=== PATIENT | male | born 1960 | race Two or more races ===

== ENCOUNTER 2016-08-29 23:25 | Emergency (ER) | payer SELFPAY ==
[~2016-08-29] VITALS: Ht 172.7 cm; Wt 93.0 kg
--- NOTE | 2016-08-30 00:45 | NUR ---
Pt BIB SELF. IN ER BED 8. Pt STATED THAT HE THINKS HE GOT A BUG BITE IN GENITAL AREA. GENITAL ABSCESS X4DAYS. Pt IS A/OX4. RR EVEN & UNLABORED.
--- NOTE | 2016-08-30 01:00 | NUR ---
IV STARTED ON L HAND #20G
[2016-08-30] MEDS ORDERED: ONDANSETRON HCL/PF 4 MG/2 ML VIAL IVP ONE (01:30)
[2016-08-30] MEDS ORDERED: HYDROMORPHONE INJ 2 MG/ML DISP.SYRIN IV ONE (01:30)
[2016-08-30] MEDS ORDERED: LIDOCAINE HCL/PF 1% 30 ML VIAL TP ONE (01:30)
[2016-08-30] MEDS ORDERED: TDAP [DIPH/PERTUSSIS/TET] 0.5 ML VIAL IM ONE ×2 (01:30→02:46)
[2016-08-30 01:38] LABS: BASOPHILS # (AUTO) 0.1 /CMM (0.0-0.2); BASOPHILS % (AUTO) 0.3 % (0.0-2.0); EOSINOPHILS # (AUTO) 0.3 /CMM (0.0-0.7); EOSINOPHILS % (AUTO) 1.9 % (0.0-6.0); HEMATOCRIT 47 % (39-51); HEMOGLOBIN 16.3 g/dL (13.5-17.5); LYMPHOCYTES # (AUTO) 2.9 /CMM (0.8-4.8); LYMPHOCYTES % (AUTO) 17.3 % (20.0-44.0); MEAN CORPUSCULAR HEMOGLOBIN 31 PG (26.0-33.0); MEAN CORPUSCULAR HGB CONC 35 g/dl (31.0-36.0); MEAN CORPUSCULAR VOLUME 89 fL (80-96); MONOCYTES # (AUTO) 0.9 /CMM (0.1-1.30); MONOCYTES % (AUTO) 5.1 % (2.0-12.0); NEUTROPHILS # (AUTO) 12.6 /CMM (1.8-8.9); NEUTROPHILS % (AUTO) 75.4 % (43.0-81.0); PLATELET COUNT (AUTO) 297 /CMM (150-450); RDW COEFFICIENT OF VARIATION 12.8 (11.5-15.0); RED BLOOD CELL COUNT(AUTO) 5.24 MIL/uL (4.5-6.0); WHITE BLOOD COUNT (AUTO) 16.7 K/uL (4.3-11.0)
[2016-08-30 01:54] LABS: POTASSIUM 3.9 mmol/L (3.5-5.1)
[2016-08-30] MEDS ORDERED: ALBUTEROL FS 2.5 MG/3 ML VIAL.NEB CONTNEB ONE (02:00)
[2016-08-30] MEDS ORDERED: IPRATROPIUM NEB FS 0.5 MG/2.5 ML AMPUL.NEB NEB ONE (02:00)
[2016-08-30] MEDS ORDERED: DEXAMETHASONE SOD PHOSPHATE 10 MG/ML VIAL IV ONE (02:00)
[2016-08-30] MEDS ORDERED: DOXYCYCLINE HYCLATE (100 MG) 100 MG TABLET PO ONE (02:00)
--- NOTE | 2016-08-30 02:35 | NUR ---
TDAP SHOT GIVEN IM ON RT UPPER ARM. BOTTLE LOT: [id number]; BOTTLE EXP: 02/01/18
[2016-08-30] MEDS ORDERED: HYDROMORPHONE 1 MG/1 ML DISP.SYRIN ONE (02:44)
[2016-08-30] MEDS ORDERED: ONDANSETRON HCL/PF 4 MG/2 ML VIAL ONE (02:45)
--- NOTE | 2016-08-30 02:50 | NUR ---
I & D IN PROGRESS AT THE BEDSIDE.
[2016-08-30] MEDS ORDERED: SULFAMETH/TRIMETH 800/160 MG 1 UDTAB TABLET PO ONE ×2 (03:00→03:58)
[2016-08-30] MEDS ORDERED: CEPHALEXIN MONOHYDRATE 500 MG CAPSULE PO ONE ×2 (03:00→03:58)
--- NOTE | 2016-08-30 03:58 | NUR ---
IV removed. Catheter intact and site benign. Pressure and 4x4 applied to site. No bleeding noted.
--- NOTE | 2016-08-30 04:03 | NUR ---
Patient discharged to home in stable condition. Written and verbal after care instructions given. Patient verbalizes understanding of instruction AND RX. PT IS CALLING SOMEONE TO PICK HIM UP. PT'S VSS. PT IS WAITING IN ER BED #8 UNITL HIS FRIEND ARRIVES.
--- NOTE | 2016-08-30 04:08 | NUR ---
PT WAS INSTRUCTED NOT TO DRIVE. PT TO HAVE SOMEONE PICK HIM UP.
[2016-08-30 04:11] VITALS: BP 143/88
== END 2016-08-30 04:11 | disposition home or self-care (01) ==
LOC: ER 23:25
DX: L02.416 Cutaneous abscess of left lower limb (principal); I10 Essential (primary) hypertension; Z90.49 Acquired absence of other specified parts of digestive tract; F17.200 Nicotine dependence, unspecified, uncomplicated
CPT/HCPCS: 36415; 80048-TC; 85025-TC; 90715; A4606; A6253; A6402; A6403; J1170; J2405; J3490; Z7610

== ENCOUNTER 2016-09-21 19:10 | Inpatient (IN) | payer OTHER ==
[~2016-09-21] VITALS: Ht 172.7 cm; Wt 123.6 kg
--- NOTE | 2016-09-21 19:16 | NUR ---
SOB W/ BLE & BILATERAL HAND NUMBNESS X YESTERDAY. DENIES ANY CP. PLACED ON MONITOR. GOWNED PT. AWAITING MD ORDER
--- NOTE | 2016-09-21 19:44 | NUR ---
WERO #18 IV ACCESS. BLOOD SAMPLE COLLECTED SENT TO LAB
[2016-09-21 19:46] LABS: BASOPHILS # (AUTO) 0.1 /CMM (0.0-0.2); BASOPHILS % (AUTO) 1.4 % (0.0-2.0); EOSINOPHILS # (AUTO) 0.2 /CMM (0.0-0.7); EOSINOPHILS % (AUTO) 1.8 % (0.0-6.0); HEMATOCRIT 48 % (39-51); HEMOGLOBIN 16.4 g/dL (13.5-17.5); LYMPHOCYTES # (AUTO) 2.7 /CMM (0.8-4.8); LYMPHOCYTES % (AUTO) 26.3 % (20.0-44.0); MEAN CORPUSCULAR HEMOGLOBIN 30 PG (26.0-33.0); MEAN CORPUSCULAR HGB CONC 34 g/dl (31.0-36.0); MEAN CORPUSCULAR VOLUME 89 fL (80-96); MONOCYTES # (AUTO) 0.5 /CMM (0.1-1.30); MONOCYTES % (AUTO) 5.1 % (2.0-12.0); NEUTROPHILS # (AUTO) 6.9 /CMM (1.8-8.9); NEUTROPHILS % (AUTO) 65.4 % (43.0-81.0); PLATELET COUNT (AUTO) 283 /CMM (150-450); RDW COEFFICIENT OF VARIATION 12.3 (11.5-15.0); RED BLOOD CELL COUNT(AUTO) 5.43 MIL/uL (4.5-6.0); WHITE BLOOD COUNT (AUTO) 10.4 K/uL (4.3-11.0)
--- NOTE | 2016-09-21 19:56 | NUR ---
XR AT BEDSIDE.
[2016-09-21 19:57] LABS: CALCIUM, SERUM 8.5 mg/dL (8.5-10.1); CARBON DIOXIDE 27 mmol/L (21-32); CHLORIDE 103 mmol/L (98-107); CREATININE 1.1 mg/dL (0.6-1.3); GLUCOSE 233 mg/dL (74-106); POTASSIUM 4.7 mmol/L (3.5-5.1); SODIUM SERUM 139 mmol/L (136-145); UREA NITROGEN, BLOOD 12 mg/dL (7-18)
[2016-09-21 19:59] LABS: INR 0.89 (0.87-1.13); PROTHROMBIN TIME 9.4 SECS (9.5-12.7)
[2016-09-21 20:06] LABS: TROPONIN I < 0.017 ng/mL (0.00-0.056)
[2016-09-21] MEDS ORDERED: CT SWABBABLE VALVE TRANS SET 1 EA INFUS.SET MC ONE (20:41)
--- NOTE | 2016-09-21 20:43 | NUR ---
PATIENT TO CT.
--- NOTE | 2016-09-21 22:06 | NUR ---
[facility] PAGED, NANDO NEWMAN MASTER ELECTRICIAN
--- NOTE | 2016-09-21 22:08 | NUR ---
CALLED NURSING SUP. FOR TELE BED
[2016-09-21 22:30] VITALS: BP 157/89
--- NOTE | 2016-09-21 22:30 | NUR ---
RN NOTES ADMITTED A 56 YEARS OLD MALE, EGYPTIAN PT FROM ER VIA [facility], ACCOMPANIED BY 2 ER NURSE WITH PRIMARY DIAGNOSIS OF AORTIC ANEURYSM UNDER NANDO NEWMAN NP. PT IS ALERT AND ORIENTED X4, DENIES CHEST PAIN, NAUSEA AND VOMITING. TELE MONITOR READS SINUS RHYTHM AT 82. PT CLAIMS NUMBNESS ON HIS BOTH LOWER AND UPPER EXTREMITY. BODY AND SKIN ASSESSMENT DONE, SKIN CLEAR AND INTACT. PT IS AMBULATORY WITH STEADY GAIT. KEPT COMFORTABLE AND ATTENDED. WILL CONTINUE TO MONITOR PT.
--- NOTE | 2016-09-21 22:33 | NUR ---
Report given to Aime FALCON and transfered patient to room 323-2 via als protocol, no incident noted.
[2016-09-21 22:45] VITALS: BP 157/89
--- NOTE | 2016-09-21 22:50 | NUR ---
RN NOTES SEEN AND EXAMINED BY NANDO NEWMAN NP, WITH VITAL SIGNS AND TELE MONITOR READING MADE AWARE. ADMITTING ORDERS GIVEN, NOTED AND CARRIED OUT.
[2016-09-21] MEDS ORDERED: ONDANSETRON HCL/PF 4 MG/2 ML VIAL IVP PRN (23:30)
[2016-09-21] MEDS ORDERED: hydrALAZINE HCL 10 MG TABLET PO ONE (23:30)
[2016-09-21] MEDS ORDERED: ACETAMINOPHEN 325 MG TABLET PO PRN (23:30)
[2016-09-21] MEDS ORDERED: HYDROCODONE/APAP 5/325MG 1 EACH TABLET PO PRN (23:30)
[2016-09-21] MEDS ORDERED: hydrALAZINE HCL 10 MG TABLET PO PRN (23:30)
[2016-09-21] MEDS ORDERED: Z GUARD REMEDY 2 OZ OINT TP PRN (23:30)
[2016-09-21] MEDS ORDERED: MAG HYDROX/AL HYDROX/SIMETH 30 ML UDC PO PRN (23:30)
[2016-09-21] MEDS ORDERED: MAGNESIUM HYDROXIDE 30 ML UDC PO PRN (23:30)
[2016-09-21] MEDS ORDERED: hydrALAZINE HCL 10 MG TABLET ONE (23:52)
[2016-09-22] VITALS (7 sets, daily range): BP systolic 125–145; BP diastolic 79–96
[2016-09-22 07:08] LABS: BASOPHILS # (AUTO) 0.1 /CMM (0.0-0.2); BASOPHILS % (AUTO) 0.5 % (0.0-2.0); EOSINOPHILS # (AUTO) 0.2 /CMM (0.0-0.7); EOSINOPHILS % (AUTO) 2.3 % (0.0-6.0); HEMATOCRIT 47 % (39-51); HEMOGLOBIN 15.9 g/dL (13.5-17.5); LYMPHOCYTES # (AUTO) 3.2 /CMM (0.8-4.8); LYMPHOCYTES % (AUTO) 32.1 % (20.0-44.0); MEAN CORPUSCULAR HEMOGLOBIN 30 PG (26.0-33.0); MEAN CORPUSCULAR HGB CONC 34 g/dl (31.0-36.0); MEAN CORPUSCULAR VOLUME 90 fL (80-96); MONOCYTES # (AUTO) 0.6 /CMM (0.1-1.30); MONOCYTES % (AUTO) 5.5 % (2.0-12.0); NEUTROPHILS % (AUTO) 59.6 % (43.0-81.0); PLATELET COUNT (AUTO) 252 /CMM (150-450); RDW COEFFICIENT OF VARIATION 13.3 (11.5-15.0); RED BLOOD CELL COUNT(AUTO) 5.22 MIL/uL (4.5-6.0); WHITE BLOOD COUNT (AUTO) 10.1 K/uL (4.3-11.0)
[2016-09-22 07:18] LABS: ALBUMIN 3.3 g/dL (3.4-5.0); BILIRUBIN,TOTAL 0.4 mg/dL (0.2-1.0); CALCIUM, SERUM 8.5 mg/dL (8.5-10.1); CREATININE 0.9 mg/dL (0.6-1.3); MAGNESIUM 1.8 mg/dL (1.8-2.4); PHOSPHORUS 4.6 mg/dL (2.5-4.9); POTASSIUM 4.2 mmol/L (3.5-5.1); TOTAL PROTEIN, SERUM 6.8 g/dL (6.4-8.2)
[2016-09-22 07:25] LABS: THYROID STIMULATING HORMONE 1.438 uIU/mL (0.358-3.74)
--- NOTE | 2016-09-22 07:30 | NUR ---
EMPLOYMENT OFFICER NOTES RECEIVED PATIENT IN BED RESTING. ALERT AND ORIENTED X3. RESPIRATIONS EVEN AND UNLABORED. NO SOB. TELEMETRY SR 79. COMPLAIN OF CHEST PAIN 4/, NON RADIATING, REFUSED PAIN MEDICATION, PATIENT SAID "ITS TOLERABLE, IM OK", NOTIFIED BOTTLED BEVERAGE INSPECTOR JOHN WATERMAN, NO NEW ORDERS. KEPT PATIENT COMFORTABLE. BED IN LOW POSITION, SIDERAILS UP X2. CALL LIGHT WITHIN REACH. WILL CONTINUE TO MONITOR ACCORDINGLY.
[2016-09-22] MEDS ORDERED: ASPI81TA2 PO (08:06)
[2016-09-22] MEDS ORDERED: ATEN50TA PO (08:06)
--- NOTE | 2016-09-22 08:08 | NUR ---
RN NOTES PT ASLEEP, BREATHING REGULAR AND UNLABORED, NO SIGNS OF PAIN OR DISCOMFORT NOTED. VITAL SIGNS STABLE, AFEBRILE. NO COMPLAIN PAIN AND DISCOMFORT. NO EPISODE OF NAUSEA AND VOMITING. SNACKS GIVEN AND TOLERATED WELL. AMBULATE GOING TO THE BATHROOM WITH STEADY GAIT. ALL NEEDS MET. ENDORSED TO MORNING RN FOR CONTINUITY OF CARE.
[2016-09-22] MEDS ORDERED: HYDROCHLOROTHIAZIDE 25 MG TABLET PO SCH (11:30)
[2016-09-22] MEDS: LOSARTAN POTASSIUM 25 MG TABLET PO SCH (13:31)
--- NOTE | 2016-09-22 19:15 | NUR ---
RN CLOSING NOTES PATIENT IN BED RESTING, IN STABLE CONDITION. NO ACUTE DISTRESS, NO SOB NOTED. DENIES PAIN AND DISCOMFORT. ALL NEEDS ATTENDED AND PROVIDED. ENDORSED TO STATISTICAL GENETICIST RN FOR CONTINUITY OF CARE.
[2016-09-22] MEDS ORDERED: ZOLPIDEM TARTRATE 5 MG TABLET PO ONE (20:30)
--- NOTE | 2016-09-22 20:30 | NUR ---
MS RN NOTES HGBA1C 7.4 PT ALSO REQUESTING FOR SLEEPING PILL. NOTIFIED [employer] HEALTH INFORMATICS SPECIALIST. HEALTH INFORMATICS SPECIALIST ORDERED AMBIEN FOR SLEEP. WILL F/U WITH MARIA G HAMM RE HGBAIC RESULT PER HEALTH INFORMATICS SPECIALIST. WILL CONTINUE TO MONITOR.
[2016-09-22] MEDS: CARVEDILOL 6.25 MG TABLET PO SCH (21:06)
[2016-09-22] MEDS ORDERED: ATORVASTATIN 40 MG TABLET PO SCH (22:00)
[2016-09-23 01:54] VITALS: BP 120/83
--- NOTE | 2016-09-23 06:17 | NUR ---
MS RN NOTES AWAKE & RESPONSIVE. NOT IN ANY DISTRESS. NO SOB NOTED. DENIES ANY PAIN OR DISCOMFORT AT THIS TIME. WITH IV-HL PATENT & INTACT. MONITORED ACCORDINGLY. CALL LIGHT WITHIN REACH. BED IN LOWEST POSITION. SR UP X2 FOR SAFETY. WILL ENDORSE TO NEXT SHIFT.
--- NOTE | 2016-09-23 07:46 | NUR ---
RN MS NOTES RECEIVED PATIENT IN BED, AWAKE, VERBALLY RESPONSIVE. NO APPARENT DISTRESS NOTED, DENIES PAIN, DENIES SOB. IV LINE ON LEFT HAND PATENT, ALL NEEDS MET, CALL LIGHT WITHIN REACH.
[2016-09-23 08:00] VITALS: BP 145/91
[2016-09-23] MEDS: LOSARTAN POTASSIUM 25 MG TABLET PO SCH (08:55)
[2016-09-23 08:56] VITALS: BP 145/91
[2016-09-23] MEDS: CARVEDILOL 6.25 MG TABLET PO SCH (08:56)
[2016-09-23] MEDS ORDERED: ASPIRIN EC 81 MG TABLET.DR PO SCH (09:00)
[2016-09-23] MEDS ORDERED: METFORMIN 500 MG TABLET PO SCH (10:00)
--- NOTE | 2016-09-23 13:33 | NUR ---
RN MS CLOSING NOTES PATIENT LEFT IN STABLE CONDITION, VIA PRIVATE CAR. NO APPARENT DISTRESS NOTED, DENIES PAIN, DENIES SOB. ALL DUE MEDS GIVEN, ALL NEEDS MET. IV LINE DISCONTINUED, PRESCRIPTION GIVEN TO PATIENT. EDUCATION PROVIDED FOR NEW MEDICATIONS, HE STATED UNDERSTANDING. DISCHARGE INSTITUTIONS REVIEWED WITH PATIENT, HE SATED UNDERSTANDING. ALL BELONGINGS ACCOUNTED FOR, FORM SIGNED. EXIT CARE UTILIZED TO PROVIDE EDUCATIONAL MATERIAL. PATIENT EDUCATED ON DIET MODIFICATION AND DM.
== END 2016-09-23 13:31 | disposition home or self-care (01) | DRG 48 ==
LOC: ER 19:12 → TELE 22:30 → MED 09-22 16:26
PROVIDERS: ADMIT Nurse Practitioner Acute Care; ATTEND Nurse Practitioner Acute Care
DX: E11.40 Type 2 diabetes mellitus with diabetic neuropathy, unspecified (principal); I11.0 Hypertensive heart disease with heart failure; I50.32 Chronic diastolic (congestive) heart failure; I71.2 Thoracic aortic aneurysm, without rupture; M94.0 Chondrocostal junction syndrome [Tietze]; E11.65 Type 2 diabetes mellitus with hyperglycemia; F17.210 Nicotine dependence, cigarettes, uncomplicated; E66.01 Morbid (severe) obesity due to excess calories; E78.5 Hyperlipidemia, unspecified; Z90.49 Acquired absence of other specified parts of digestive tract; E78.1 Pure hyperglyceridemia; Z68.41 Body mass index [BMI] 40.0-44.9, adult; Z71.6 Tobacco abuse counseling; Z71.3 Dietary counseling and surveillance; Z83.3 Family history of diabetes mellitus; E44.1 Mild protein-calorie malnutrition
CPT/HCPCS: 36415; 71010-TC; 80048-TC; 80053-TC; 80061-TC; 83735-TC; 83880; 84100-TC; 84443-TC; 84484-TC; 85025-TC; 85378-TC; 85730-TC; 87081-TC; 93307-TC; A4606; Z7610

== ENCOUNTER 2017-05-05 20:01 | Inpatient (IN) | payer OTHER ==
[~2017-05-05] VITALS: Ht 172.7 cm; Wt 103.4 kg
[~2017-05-05 20:01] MED LIST: ASPI-1169 PO; ATEN50TA PO
--- NOTE | 2017-05-05 20:20 | NUR ---
PT CAME IN WITH C/O NOT FEELING WELL, CONSTIPATION, DIFFICULTY URINATING, FEVER. SEEN BY FOR EVAL. RECENTLY HAS BEEN TAKING ABX- LEVAQUIN. SAFETY AND COMFORT MEASURES PROVIDED. WILL MONITOR.
[2017-05-05] MEDS ORDERED: MORPHINE SULFATE INJ 2 MG/ML DISP.SYRIN IV ONE (20:30)
[2017-05-05] MEDS ORDERED: IV NS 0.9% 500 ML BAG IV ONE (20:30)
[2017-05-05] MEDS ORDERED: ACETAMINOPHEN ES 500 MG TABLET PO ONE (20:30)
[2017-05-05] MEDS ORDERED: ONDANSETRON HCL/PF 4 MG/2 ML VIAL IVP ONE (20:30)
[2017-05-05] MEDS ORDERED: IBUPROFEN 400 MG TABLET PO ONE (20:30)
[2017-05-05] MEDS ORDERED: ONDANSETRON HCL/PF 4 MG/2 ML VIAL ONE (20:31)
[2017-05-05] MEDS ORDERED: ACETAMINOPHEN ES 500 MG TABLET ONE (20:32)
[2017-05-05] MEDS ORDERED: MORPHINE SULFATE INJ 4 MG/ML DISP.SYRIN ONE (20:32)
[2017-05-05] MEDS ORDERED: IBUPROFEN 400 MG TABLET ONE (20:32)
[2017-05-05 20:33] LABS: APPEARANCE,URINE Clear (CLEAR); BILIRUBIN,URINE SMALL (NEGATIVE); BLOOD, URINE Moderate Ery/uL (NEGATIVE); COLOR,URINE Yellow (YELLOW); KETONES,URINE Negative (NEGATIVE); LEUKOCYTE ESTERASE ,URINE Small (NEGATIVE); NITRITE, URINE Negative (NEGATIVE); PROTEIN,URINE 100 mg/dl (NEGATIVE); UGLUCOSE Negative (NEGATIVE); UROBILINOGEN,URINE 0.2 EU/dL (0.2)
[2017-05-05 20:40] LABS: BACTERIA,URINE 1+ /HPF (None Seen); RBC,URINE 21-50 /HPF (0-2); SQUAMOUS EPITHELIAL CELL,UR Few /HPF (None Seen)
--- NOTE | 2017-05-05 20:40 | NUR ---
IV ACCESS STARTED. BLOOD DRAWN FOR LABS. MEDICATED ORDERED.
[2017-05-05 20:47] LABS: CALCIUM, SERUM 9.6 mg/dL (8.5-10.1); CARBON DIOXIDE 23 mmol/L (21-32); CHLORIDE 100 mmol/L (98-107); CREATININE 1.1 mg/dL (0.6-1.3); GLUCOSE 153 mg/dL (74-106); POTASSIUM 4.1 mmol/L (3.5-5.1); SODIUM SERUM 134 mmol/L (136-145); UREA NITROGEN, BLOOD 19 mg/dL (7-18)
[2017-05-05 20:48] LABS: BASOPHILS # (AUTO) 0.2 /CMM (0.0-0.2); BASOPHILS % (AUTO) 0.6 % (0.0-2.0); EOSINOPHILS # (AUTO) 0.1 /CMM (0.0-0.7); EOSINOPHILS % (AUTO) 0.2 % (0.0-6.0); HEMATOCRIT 47 % (39-51); HEMOGLOBIN 16.7 g/dL (13.5-17.5); LYMPHOCYTES # (AUTO) 1.3 /CMM (0.8-4.8); LYMPHOCYTES % (AUTO) 4.8 % (20.0-44.0); MEAN CORPUSCULAR HEMOGLOBIN 31 PG (26.0-33.0); MEAN CORPUSCULAR HGB CONC 36 g/dl (31.0-36.0); MEAN CORPUSCULAR VOLUME 87 fL (80-96); MONOCYTES # (AUTO) 1.2 /CMM (0.1-1.30); MONOCYTES % (AUTO) 4.3 % (2.0-12.0); NEUTROPHILS # (AUTO) 25.1 /CMM (1.8-8.9); NEUTROPHILS % (AUTO) 90.1 % (43.0-81.0); PLATELET COUNT (AUTO) 311 /CMM (150-450); RDW COEFFICIENT OF VARIATION 12.5 (11.5-15.0); RED BLOOD CELL COUNT(AUTO) 5.36 MIL/uL (4.5-6.0); WHITE BLOOD COUNT (AUTO) 27.9 K/uL (4.3-11.0)
[2017-05-05 20:51] LABS: INR 1.04 (0.85-1.15)
[2017-05-05 20:53] LABS: ALANINE AMINOTRANSFERASE 42 U/L (12-78); ALBUMIN 3.2 g/dL (3.4-5.0); ALKALINE PHOSPHATASE 123 U/L (46-116); ASPARTATE AMINOTRANSFERASE 20 U/L (15-37); BILIRUBIN,DIRECT 0.4 mg/dL (0.0-0.2); BILIRUBIN,TOTAL 1.1 mg/dL (0.2-1.0); LIPASE 106 U/L (73-393); TOTAL PROTEIN, SERUM 8.4 g/dL (6.4-8.2)
[2017-05-05 20:55] LABS: TROPONIN I < 0.017 ng/mL (0.00-0.056)
--- NOTE | 2017-05-05 21:50 | NUR ---
MEDICATED ORDERED. VSS.
[2017-05-05] MEDS ORDERED: PIPERACILLIN /TAZOBACTAM 3.375 G in IV D5W 50 ML IV ONE (22:00)
[2017-05-05] MEDS ORDERED: IV NS 0.9% 1,000 ML BAG IV ONE ×2 (22:00)
[2017-05-05] MEDS ORDERED: PIPERACILLIN /TAZOBACTAM 3.375 G VIAL IV ONE (22:19)
--- NOTE | 2017-05-05 22:41 | NUR ---
TELE 315-
[2017-05-05 23:00] VITALS: BP 100/62
--- NOTE | 2017-05-05 23:03 | NUR ---
REPORT GIVEN TO FARZAD FALCON FOR TELE [id number].
[2017-05-05 23:15] VITALS: BP 100/62
--- NOTE | 2017-05-05 23:20 | NUR ---
RN NOTES RECEIVE PT FROM [facility] AT 2312, PT A/O X 4, IN BED, TOLERATING ROOM AIR 98%. HEAD TO TOE ASSESSMENT IS DONE, SKIN IS INTACT, NO S/S OF DISTRESS, STABLE, SAFETY MEASURES IN PLACE, CALL LIGHT WITHIN REACH, WILL CONTINUE TO MONITOR.
[2017-05-05] MEDS ORDERED: MORPHINE SULFATE INJ 4 MG/ML DISP.SYRIN IV PRN (23:30)
[2017-05-05] MEDS ORDERED: MAG HYDROX/AL HYDROX/SIMETH 30 ML UDC PO PRN (23:30)
[2017-05-05] MEDS ORDERED: MAGNESIUM HYDROXIDE 30 ML UDC PO PRN (23:30)
[2017-05-05] MEDS ORDERED: Z GUARD REMEDY 2 OZ OINT TP PRN (23:30)
[2017-05-05] MEDS ORDERED: ACETAMINOPHEN 325 MG TABLET PO PRN (23:30)
[2017-05-05] MEDS ORDERED: ONDANSETRON HCL/PF 4 MG/2 ML VIAL IVP PRN (23:30)
--- NOTE | 2017-05-05 23:40 | NUR ---
PAGED DR. BILLINGS SPOKE TO HIM RELAYED PT REQUEST PER PT C/O HE DOESNT HAVE ENOUGH SLEEP PER DR. BILLINGS GIVE AMBIEN 5 MG PO QHS PRN NOTED AND CARRIED OUT READ BACK AND VERIFIED ORDERS.
[2017-05-05] MEDS: ZOLPIDEM TARTRATE 5 MG TABLET PO PRN (23:58)
[2017-05-06] MEDS ORDERED: ENOXAPARIN SODIUM 40 MG/0.4 ML DISP.SYRIN SQ ONE
[2017-05-06] MEDS: HYDROCODONE/APAP 5/325MG 1 EACH TABLET PO PRN ×2 (04:16→13:25)
[2017-05-06 04:30] VITALS: BP 132/84
--- NOTE | 2017-05-06 06:15 | NUR ---
MS RN CLOSING NOTES PT ASLEEP IN BED AND EASILY AWAKEN, HEAD OF BED ELEVATED AT ALL TIMES FOR BETTER LUNG EXPANSION AND GOOD CIRCULATION. TOLERATING ROOM AIR 98%. AFEBRILE. NOT IN RESPIRATORY DISTRESS, STABLE, NURSING CARE RENDERED. NEEDS ATTENDED AND ANTICIPATED. GOOD SKIN CARE PROVIDED. KEPT CLEAN AND DRY AND COMFORTABLE.NO C/O OF PAIN. ON LOW BED TO ENSURE SAFETY, CALL LIGHT WITHIN REACH, WILL ENDORSE TO THE NEXT SHIFT CONTINUE PLAN OF CARE.
[2017-05-06 07:19] LABS: EOSINOPHILS % (AUTO) 0.1 % (0.0-6.0); HEMATOCRIT 42 % (39-51); HEMOGLOBIN 14.4 g/dL (13.5-17.5); LYMPHOCYTES # (AUTO) 0.8 /CMM (0.8-4.8); LYMPHOCYTES % (AUTO) 3.4 % (20.0-44.0); MEAN CORPUSCULAR HEMOGLOBIN 31 PG (26.0-33.0); MEAN CORPUSCULAR HGB CONC 34 g/dl (31.0-36.0); MEAN CORPUSCULAR VOLUME 90 fL (80-96); MONOCYTES # (AUTO) 0.6 /CMM (0.1-1.30); MONOCYTES % (AUTO) 2.8 % (2.0-12.0); NEUTROPHILS # (AUTO) 21.5 /CMM (1.8-8.9); NEUTROPHILS % (AUTO) 93.7 % (43.0-81.0); PLATELET COUNT (AUTO) 293 /CMM (150-450); RDW COEFFICIENT OF VARIATION 13.4 (11.5-15.0); RED BLOOD CELL COUNT(AUTO) 4.69 MIL/uL (4.5-6.0)
--- NOTE | 2017-05-06 07:20 | NUR ---
RN OPEN NOTES RECEIVED REPORT FROM BOAT LABORER NURSE. PATIENT IS IN BED. ALERT AND ORIENTED TO NAME, PLACE AND TIME. NO SIGNS AND SYMPTOMS OF DISTRESS. BED IN LOW POSITION, LOCKED AND TWO SIDE RAILS ARE UP. CALL LIGHT WITHIN REACH FOR SAFETY. WILL CONTINUE TO ASSESS AND MONITOR PATIENT
[2017-05-06 07:27] LABS: CALCIUM, SERUM 8.4 mg/dL (8.5-10.1); MAGNESIUM 1.8 mg/dL (1.8-2.4); PHOSPHORUS 2.8 mg/dL (2.5-4.9); POTASSIUM 3.9 mmol/L (3.5-5.1)
[2017-05-06 08:00] VITALS: BP_SYST 106; BP_SYST 128; BP_DIAS 53; BP_DIAS 83
[2017-05-06] MEDS: DOCUSATE SODIUM 100 MG CAPSULE PO SCH ×2 (08:28→16:06)
[2017-05-06] MEDS: ASPIRIN 81 MG TAB.CHEW PO SCH (08:28)
[2017-05-06] MEDS: ATENOLOL 50 MG TABLET PO SCH ×2 (08:29→16:07)
[2017-05-06] MEDS: PANTOPRAZOLE 40 MG TABLET.DR PO SCH (08:30)
[2017-05-06] MEDS: CEFTRIAXONE 1 G in IV D5W 50 ML IV SCH (10:33)
[2017-05-06 16:00] VITALS: BP 107/68
[2017-05-06] MEDS: IV NS 0.9% 1,000 ML IV PRN ×2 (16:06)
--- NOTE | 2017-05-06 18:18 | NUR ---
RN CLOSING NOTES PATIENT IS IN BED. ALERT AND ORIENTED TO NAME, PLACE AND TIME. NO SIGNS AND SYMPTOMS OF DISTRESS. NO BOWEL MOVEMENT TODAY. NO ACUTE CHANGES DURING MY SHIFT. PATIENT KEPT CLEAN, SAFE AND DRY. BED IN LOW POSITION, LOCKED AND TWO SIDE RAILS ARE UP. CALL LIGHT WITHIN REACH FOR SAFETY. WILL ENDORSE TO SKIP MINER NURSE.
--- NOTE | 2017-05-06 19:00 | NUR ---
RN NOTES RECEIVE PT IN BED A/O X4, NO S/S OF DISTRESS, STABLE, SAFETY MEASURES IN PLACE, CALL LIGHT WITHIN REACH, WILL CONTINUE TO MONITOR.
[2017-05-06 20:00] VITALS: BP 124/78
[2017-05-06] MEDS: ENOXAPARIN SODIUM 40 MG/0.4 ML DISP.SYRIN SQ SCH (21:55)
[2017-05-06] MEDS: ZOLPIDEM TARTRATE 5 MG TABLET PO PRN (22:00)
[2017-05-07] MEDS: IV NS 0.9% 1,000 ML IV PRN (04:48)
--- NOTE | 2017-05-07 06:21 | NUR ---
MS RN CLOSING NOTES PT COMFORTABLY ASLEEP IN BED AND EASILY AWAKEN, TOLERATING ROOM AIR 98%. HEAD OF BED ELEVATED AT ALL TIMES FOR BETTER LUNG EXPANSION AND GOOD CIRCULATION. ENCOURAGE PO FLUIDS INTAKE. NOT IN DISTRESS, NOT IN RESPIRATORY DISTRESS, STABLE CONDITION, KEPT CLEAN AND DRY AND COMFORTABLE. NURSING CARE RENDERED. NEEDS ATTENDED AND ANTICIPATED. ON LOW BED TO ENSURE SAFETY, CALL LIGHT WITHIN REACH, WILL ENDORSE TO THE NEXT SHIFT CONTINUE PLAN OF CARE. Addendum: 05/07/17 at 0623 by FARZAD AWAN RN PT AFEBRILE
--- NOTE | 2017-05-07 07:18 | NUR ---
RN OPEN NOTES RECEIVED REPORT FROM MONUMENT SETTER NURSE. WILL CONTINUE TO MONITOR AND ASSESS PATIENT
[2017-05-07 08:00] VITALS: BP 117/75
[2017-05-07] MEDS: ASPIRIN 81 MG TAB.CHEW PO SCH (08:18)
[2017-05-07] MEDS: PANTOPRAZOLE 40 MG TABLET.DR PO SCH (08:18)
[2017-05-07] MEDS: DOCUSATE SODIUM 100 MG CAPSULE PO SCH ×2 (08:18→16:09)
[2017-05-07] MEDS: ATENOLOL 50 MG TABLET PO SCH ×2 (08:19→16:09)
[2017-05-07] MEDS: CEFTRIAXONE 1 G in IV D5W 50 ML IV SCH (08:54)
[2017-05-07 09:49] LABS: BASOPHILS % (AUTO) 0.2 % (0.0-2.0); EOSINOPHILS # (AUTO) 0.2 /CMM (0.0-0.7); HEMATOCRIT 39 % (39-51); HEMOGLOBIN 13.4 g/dL (13.5-17.5); LYMPHOCYTES # (AUTO) 1.9 /CMM (0.8-4.8); LYMPHOCYTES % (AUTO) 11.5 % (20.0-44.0); MEAN CORPUSCULAR HEMOGLOBIN 31 PG (26.0-33.0); MEAN CORPUSCULAR HGB CONC 34 g/dl (31.0-36.0); MEAN CORPUSCULAR VOLUME 89 fL (80-96); MONOCYTES # (AUTO) 0.8 /CMM (0.1-1.30); MONOCYTES % (AUTO) 5.1 % (2.0-12.0); NEUTROPHILS # (AUTO) 13.7 /CMM (1.8-8.9); NEUTROPHILS % (AUTO) 82.2 % (43.0-81.0); PLATELET COUNT (AUTO) 297 /CMM (150-450); RDW COEFFICIENT OF VARIATION 13.3 (11.5-15.0); RED BLOOD CELL COUNT(AUTO) 4.37 MIL/uL (4.5-6.0); WHITE BLOOD COUNT (AUTO) 16.7 K/uL (4.3-11.0)
--- NOTE | 2017-05-07 13:00 | NUR ---
RN NOTE RECEIVED REPORT FROM EZEKIEL DE LA ROSA FOR CONTINUITY OF CARE
[2017-05-07 16:00] VITALS: BP 114/74
--- NOTE | 2017-05-07 18:56 | NUR ---
MS RN CLOSING NOTE PATIENT IS RESTING COMFORTABLY AT THIS TIME. NO PAIN NOTED. NO SOB OR DISTRESS NOTED. CALL LIGHT WITHIN REACH AT ALL TIMES. SAFETY MEASURES IMPLEMENTED. ABLE TO COMMUNICATE NEEDS. IV INTACT AND PATENT NO REDNESS OR SWELLING NOTED. ALL DUE MEDICATIONS GIVEN ORDERED. ALL NURSING CARE NEEDS ATTENDED TO. WILL ENDORSE TO AUTOMATIC VULCANIZING LEAD OPERATOR NURSE FOR ANN
--- NOTE | 2017-05-07 19:20 | NUR ---
RN OPEN NOTES RECEIVED PATIENT AWAKE IN BED. A/O X4. NO SIGNS OF DISTRESS OR DISCOMFORT. BREATHING EVEN AND UNLABORED. IV ACCESS IN LFA, PATENT AND INTACT, NO SIGNS OF REDNESS OR INFILTRATION. BED IN LOW LOCKED POSITION WITH SIDE RAILS X2. CALL LIGHT WITHIN REACH. WILL CONTINUE TO MONITOR.
[2017-05-07 19:52] VITALS: BP 115/75
[2017-05-07 20:00] VITALS: BP 115/75
[2017-05-07] MEDS ORDERED: TAMSULOSIN 0.4 MG CAP.SR.24H PO SCH (22:00)
[2017-05-07] MEDS: ZOLPIDEM TARTRATE 5 MG TABLET PO PRN (22:33)
[2017-05-07] MEDS: ENOXAPARIN SODIUM 40 MG/0.4 ML DISP.SYRIN SQ SCH (22:34)
--- NOTE | 2017-05-08 06:39 | NUR ---
RN CLOSING NOTES PATIENT RESTING IN BED, EASILY AROUSABLE. A/O X4. NO SIGNS OF DISTRESS OR DISCOMFORT. BREATHING EVEN AND UNLABORED. IV ACCESS IN LFA, PATENT AND INTACT, NO SIGNS OF REDNESS OR INFILTRATION. ALL NEEDS MET. NO SIGNIFICANT CHANGES THROUGH THE NIGHT. BED IN LOW LOCKED POSITION WITH SIDE RAILS X2. CALL LIGHT WITHIN REACH. WILL ENDORSE TO AM SHIFT FOR ANN.
--- NOTE | 2017-05-08 07:45 | NUR ---
MS/RN OPENING NOTE PATIENT IN BED IN STABLE CONDITION. A/O X 4. NO SIGNS OF ACUTE DISTRESS. NO COMPLAIN OF PAIN OR DISCOMFORT. ALL NEEDS ATTENDED TO. CALL LIGHT WITHIN REACH. WILL CONTINUE TO MONITOR TO ENSURE SAFETY.
[2017-05-08 08:00] VITALS: BP_SYST 107; BP_SYST 123; BP_DIAS 68; BP_DIAS 81
[2017-05-08 08:37] VITALS: BP 107/68
[2017-05-08] MEDS: ATENOLOL 50 MG TABLET PO SCH (08:37)
[2017-05-08] MEDS: CEFTRIAXONE 1 G in IV D5W 50 ML IV SCH (08:37)
[2017-05-08] MEDS: ASPIRIN 81 MG TAB.CHEW PO SCH (08:37)
[2017-05-08] MEDS: PANTOPRAZOLE 40 MG TABLET.DR PO SCH (08:37)
[2017-05-08] MEDS: DOCUSATE SODIUM 100 MG CAPSULE PO SCH (08:37)
--- NOTE | 2017-05-08 14:14 | NUR ---
MS/SAFETY ATTENDANT PATIENT DISCHARGE HOME IN STABLE CONDITION. A/O X 4. NO SIGNS OF ACUTE DISTRESS. NO COMPLAIN OF PAIN OR DISCOMFORT. DISCHARGE INSTRUCTIONS AND TEACHINGS PROVIDED, VERBALIZED UNDERSTANDING. ALSO MADE AWARE TO FOLLOW UP WITH PRIMARY PHYSICIAN WITHIN 3 DAYS AND GET UROLOGY CONSULT. VERBALIZED UNDERSTANDING. ALL NEEDS ATTENDED TO. NAME BAND AND IV LINE REMOVED. LEFT VIA PRIVATE CAR ACCOMPANIED BY FRIEND IN STABLE CONDITION.
== END 2017-05-08 14:10 | disposition home or self-care (01) | DRG 720 ==
LOC: ER 20:03 → TELE 22:59 → MED 23:30
PROVIDERS: ADMIT Internal Medicine; ATTEND Internal Medicine
DX: A41.9 Sepsis, unspecified organism (principal); E44.0 Moderate protein-calorie malnutrition; E87.1 Hypo-osmolality and hyponatremia; E88.09 Other disorders of plasma-protein metabolism, not elsewhere classified; I10 Essential (primary) hypertension; N39.0 Urinary tract infection, site not specified; E11.9 Type 2 diabetes mellitus without complications; E66.9 Obesity, unspecified; F17.210 Nicotine dependence, cigarettes, uncomplicated; I25.10 Atherosclerotic heart disease of native coronary artery without angina pectoris; Z68.34 Body mass index [BMI] 34.0-34.9, adult; N40.1 Benign prostatic hyperplasia with lower urinary tract symptoms
CPT/HCPCS: 36415; 71045-TC; 80048-TC; 80076-TC; 81000-TC; 83605-TC; 83690-TC; 83735-TC; 84100-TC; 84153-TC; 84484-TC; 85025-TC; 85730-TC; 87040-TC; 87081-TC; 87086-TC; J0696; J1650; J2270; J2405; J2543; J7030; J7060